=== PATIENT | male | born 1995 ===

== ENCOUNTER 2017-03-16 11:35 | Emergency (ER) | payer BC ==
[2017-03-16 12:12] VITALS: BP 115/65
--- NOTE | 2017-03-16 13:24 | XRay Report ---
RIGHT KNEE: Trauma, swelling. The bony architecture is intact without evidence of fracture or dislocation. No significant soft tissue abnormality is seen. IMPRESSION: Normal right knee.
--- NOTE | 2017-03-16 13:28 | Emergency Department Report ---
ED Lower Extremity HPI - General Chief Complaint: Extremity Injury, Lower Stated Complaint: LEFT KNEE PAIN Time Seen by Provider: 03/16/17 13:47 Source: patient Mode of arrival: Ambulatory Limitations: No Limitations - History of Present Illness Initial Comments: 21 y/o M presents with pain and swelling to the medial aspect of his left knee. Pt states that he has a hx of ACL tear in 2011 playing football. Pt states that he was laying in bed and his knee locked up (not uncommon for him) and suddenly it elicted pain to the joint. Pt denies any numbness, tingling, redness, SOB, resp distress, or long travel at this time. Pt has been taking ibuprofen for relief of the pain. Pain increases with weight and movement and decreases with non-weight bearing. NKDA. EISENBERG Complaint: knee injury -: Sudden, days(s) (4) Injury: Knee: Left Place: home Severity scale (0 -10): 8 Improves With: NSAID, immobilization Worsens With: weight bearing, movement Context: other (states that he was sleeping in the bed and rolled over and feels that his L knee locked up) Associated Symptoms: swelling, ambulatory. denies: numbness, tingling, unable to bear weight Treatments Prior to Arrival: NSAIDS - Related Data Previous Rx's Medication Instructions Recorded Last Taken Type Butalbit/Acetamin/Caff/Codeine 1 cap PO Q8HR PRN #15 cap 07/26/15 Unknown Rx [Fioricet/Codeine 60-311-68-30] Cyclobenzaprine HCl [Flexeril 5 MG 5 mg PO TID PRN #12 tab 03/16/17 Unknown Rx TAB] Ibuprofen [Motrin 600 MG tab] 600 mg PO Q8H PRN #15 tablet 03/16/17 Unknown Rx Allergies Allergy/AdvReac Type Severity Reaction Status Date / Time poison brandan extract Allergy Hives Verified 07/26/15 12:28 ED Review of Systems ROS: Stated complaint: LEFT KNEE PAIN Other details as noted in HPI Constitutional: denies: chills, fever Eyes: denies: eye pain, eye discharge, vision change ENT: denies: ear pain, throat pain Respiratory: denies: cough, shortness of breath, wheezing Cardiovascular: denies: chest pain, palpitations Genitourinary: denies: urgency, dysuria Musculoskeletal: other (Left knee pain and swelling). denies: back pain, joint swelling, arthralgia Skin: other (no redness or bruising noted at the site). denies: rash, lesions Neurological: denies: headache, weakness, paresthesias Psychiatric: denies: anxiety, depression Hematological/Lymphatic: denies: easy bleeding, easy bruising ED Past Medical Hx - Past Medical History Previous Medical History?: Yes - Surgical History Past Surgical History?: Yes Additional Surgical History: knee surgery - Social History Smoking Status: Never Smoker Substance Use Type: None - Medications Home Medications: Home Medications Medication Instructions Recorded Confirmed Last Taken Type Butalbit/Acetamin/Caff/Codeine 1 cap PO Q8HR PRN #15 cap 07/26/15 Unknown Rx [Fioricet/Codeine 21-012-54-30] Cyclobenzaprine HCl [Flexeril 5 MG 5 mg PO TID PRN #12 tab 03/16/17 Unknown Rx TAB] Ibuprofen [Motrin 600 MG tab] 600 mg PO Q8H PRN #15 tablet 03/16/17 Unknown Rx ED Physical Exam - General Limitations: No Limitations General appearance: alert, in no apparent distress - Head Head exam: Present: atraumatic, normocephalic - Eye Eye exam: Present: normal appearance - ENT ENT exam: Present: mucous membranes moist - Respiratory Respiratory exam: Present: normal lung sounds bilaterally. Absent: respiratory distress - Cardiovascular Cardiovascular Exam: Present: regular rate, normal rhythm. Absent: systolic murmur, diastolic murmur, rubs, gallop - Extremities Exam Extremities exam: Present: full ROM, tenderness (at the medial aspect of the left knee, no calf tenderness, negtive homans, sensation intact, hemodynamically and neurovascularly intact), normal capillary refill, other ( pain at the medial aspect with valgus examination) ED Course Vital Signs 03/16/17 12:06 Temperature 98.7 F Pulse Rate 66 Respiratory 12 Rate Blood Pressure 115/65 O2 Sat by Pulse 100 Oximetry ED Lower Extremity MDM - Medical Decision Making 21 y/o reports to L knee pain. We have given him Ibuprofen 600 mg here to help alleviate the discomfort. Xray was performed and was not indicative of fractures or dislocations. I have provided pt with an SHELL wrap today and will give some anti-inflammatory and muscle relaxant here at discharge. Pt knee has full ROM with flexion and extension. AHSAN therapy encouraged to the patient today. pt was discharged in stable condition, no signs of resp distress and is alert and oriented at discharge. Critical care attestation.: If time is entered above; I have spent that time in minutes in the direct care of this critically ill patient, excluding procedure time. ED Disposition Clinical Impression: Muscle strain Knee pain, acute Qualifiers: Laterality: left Qualified Code(s): M25.562 - Pain in left knee Disposition: - TO HOME OR SELFCARE Is pt being admited?: No Does the pt Need Aspirin: No Condition: Good Instructions: Muscle Strain (ED), Knee Pain (ED), Knee Immobilizer (ED) Additional Instructions: Please take the pain and muscle relaxant as needed for the pain. Please be cautious that the muscle relaxant may make you drowsy, so please take at night. Please follow-up with PCP within 3-5 days. Orthopedics if no improvement. If any acute worsening such as fever, chills, chest pain, numbness, tingling, increased swelling, or redness then return to the ER immediately. Prescriptions: Cyclobenzaprine HCl [Flexeril 5 MG TAB] 5 mg PO TID PRN #12 tab PRN Reason: knee pain Ibuprofen [Motrin 600 MG tab] 600 mg PO Q8H PRN #15 tablet PRN Reason: Pain Referrals: PRIMARY CARE, [Primary Care Provider] - 3-5 Days CAT GAINES MD [Staff Physician] - 3-5 Days [facility] [Outside] - 3-5 Days Forms: Work/School Release Form(ED) Time of Disposition: 14:01
[2017-03-16] MEDS ORDERED: MOTRIN PO ONE (13:29)
== END 2017-03-16 14:10 | disposition home or self-care (01) ==
LOC: ED 11:35
DX: S86.812A Strain of other muscle(s) and tendon(s) at lower leg level, left leg, initial encounter (principal); M25.562 Pain in left knee; X50.1XXA Overexertion from prolonged static or awkward postures, initial encounter; Y93.89 Activity, other specified; Y92.89 Other specified places as the place of occurrence of the external cause; Y99.8 Other external cause status; Z91.048 Other nonmedicinal substance allergy status

== ENCOUNTER 2017-06-18 11:17 | Outpatient (CLI) | payer BC ==
--- NOTE | 2017-06-18 21:22 | XRay Report ---
FINAL REPORT EXAM: XR HAND 3+V RT HISTORY: PAIN IN RIGHT HAND TECHNIQUE: 3 views right hand PRIORS: None. FINDINGS: No fracture is identified. No dislocation seen. Joint spaces are within normal limits. No erosive bony change identified. Carpal bones maintain normal alignment. Distal radius and ulna are intact. No radiopaque foreign bodies seen. IMPRESSION: Negative hand series
== END 2017-06-18 11:18 | disposition home or self-care (01) ==
LOC: XRAY 11:17
PROVIDERS: ATTEND Orthopaedic Surgery
DX: M79.641 Pain in right hand (principal)